=== PATIENT | female | born 1965 | race Caucasian/White ===

== ENCOUNTER 2020-09-18 02:33 | Emergency (ER) | payer BC ==
[2020-09-18 04:01] LABS: HEMOGLOBIN 13.2 gm/dl (12.3-15.3); RED BLOOD COUNT 4.17 M/UL (4.00-5.10); WHITE BLOOD COUNT 9.4 K/UL (4.5-11.0)
[2020-09-18 04:29] LABS: BUN/CREATININE RATIO 16 (0-10)
[2020-09-18] MEDS ORDERED: IBUPROFEN800 MG PO (07:32)
[2020-09-18] MEDS ORDERED: FLOMAX 0.4 MG0.4 MG PO (07:32)
[2020-09-18] MEDS ORDERED: ZOFRAN ODT 4 MG4 MG PO (07:32)
[2020-09-18] MEDS ORDERED: HYDROCODON-ACE1 EAC4 PO (07:32)
== END 2020-09-18 08:00 | disposition home or self-care (01) ==
LOC: ER1 02:33
PROVIDERS: Physician Assistant
DX: R10.31 Right lower quadrant pain (principal); K21.9 Gastro-esophageal reflux disease without esophagitis; Z87.442 Personal history of urinary calculi; Z90.49 Acquired absence of other specified parts of digestive tract
CPT/HCPCS: 80053; 81001; 83690; 85025; 87086; 96372; 99284; J1885

== ENCOUNTER → 2021-01-08 | Outpatient (CLI) | payer BC ==
[~2021-01-08] MED LIST: FLOMAX 0.4 MG0.4 MG PO; HYDROCODON-ACE1 EAC4 PO; IBUPROFEN800 MG PO; ZOFRAN ODT 4 MG4 MG PO
== END ==
LOC: KOH-I 16:43
DX: M79.644 Pain in right finger(s) (principal)
CPT/HCPCS: 73130

== ENCOUNTER → 2021-01-12 | Outpatient (CLI) | payer BC | LOC: MRI 09:48 | DX: R41.89 Other symptoms and signs involving cognitive functions and awareness (principal); M79.644 Pain in right finger(s) | CPT/HCPCS: 70551 ==

== ENCOUNTER → 2021-12-12 | Outpatient (CLI) | payer BC | LOC: CT 13:46 | DX: R10.84 Generalized abdominal pain (principal); R82.2 Biliuria; N20.0 Calculus of kidney; Z80.0 Family history of malignant neoplasm of digestive organs | CPT/HCPCS: Q9967 ==